=== PATIENT | male | born 1990 | race Caucasian/White ===

== ENCOUNTER 2023-05-24 17:35 | Inpatient (IN) ==
[2023-05-24] MEDS ORDERED: cefTRIAXone 2 gm/50 mL D5W 2 GM/50 ML BAG IV ONE (18:41)
[2023-05-24] MEDS ORDERED: Vancomycin 1,000 MG VIAL IVPB SCH (19:00)
[2023-05-24] MEDS ORDERED: Vancomycin 1,750 MG in NS 0.9% 500 ml BAG 500 ML IVPB ONE (19:00)
[2023-05-24] MEDS ORDERED: Valproic Acid IV 500 MG in NS 0.9% 100 ml BAG 100 ML IVPB ONE (19:44)
[2023-05-24] MEDS ORDERED: Propofol 10 MG/ML 20 ML BTL IV PUSH ONE (19:53)
[2023-05-24] MEDS: Rocuronium 50 mg VIAL 10 mg/ml 5 ml VIAL (50 mg) IV ONE ×2 (20:03→20:18)
[2023-05-24] MEDS ORDERED: Acyclovir IV 650 MG in NS 0.9% 100 ml BAG 100 ML IVPB ONE (20:17)
[2023-05-24] MEDS: Propofol 10 mg/ml 100 ML BTL 1,000 MG/100 ML BTL IV SCH (20:25)
[2023-05-24] MEDS ORDERED: Midazolam 10 mg/10 ml VIAL 1 mg/ml 10 ml VIAL (10 mg) IV SLOW PU ONE (21:10)
[2023-05-24] MEDS ORDERED: Midazolam PREMIXBAG 1 MG/ML NS 100 ML IV SCH (21:20)
[2023-05-24] MEDS ORDERED: OXCARBAZEPINE 300 MG PO SCH (21:45)
[2023-05-24] MEDS ORDERED: fentaNYL 100 mcg/2 ml 50 MCG/ML VIAL IV SLOW PU PRN (21:54)
[2023-05-24] MEDS ORDERED: Vancomycin per Pharmacy 1 EA NOTE FOLLOW UP SCH (22:00)
[2023-05-24] MEDS ORDERED: Lactated Ringers 1000 ml BAG 1,000 ML IV SCH (23:45)
[2023-05-25 00:40] LABS: Urine Appearance Cloudy; Urine Bilirubin Negative (Negative); Urine Blood 2+ (Negative); Urine Color Yellow; Urine Glucose 1+(50 mg/dL) (Negative); Urine Ketones 2+ (Negative); Urine Nitrite Negative (Negative); Urine Protein 1+(30 mg/dL) (Negative); Urine Specific Gravity 1.023 (1.002-1.030); Urine Urobilinogen Negative (Negative)
[2023-05-25 00:42] LABS: Urine Bacteria Absent (Absent); Urine Red Blood Cell 2+(6-10/hpf) (Absent); Urine Squamous Epithelial Cell Present (Absent); Urine White Blood Cell Trace(0-5/hpf) (Absent)
[2023-05-25] MEDS ORDERED: Lactated Ringers 1000 ml BAG 1,000 ML IV SCH (00:45)
[2023-05-25] MEDS: Propofol 10 mg/ml 100 ML BTL 1,000 MG/100 ML BTL IV SCH ×4 (00:48→22:09)
[2023-05-25 00:52] LABS: Body Fluid Source Cerebral Spinal
[2023-05-25 01:08] LABS: Albumin 4.4 g/dL (3.2-5.2); C Reactive Protein 18.45 mg/L (<8.01); Calcium 9.2 mg/dL (8.6-10.3); Creatinine, Serum 0.93 mg/dL (0.67-1.17); Globulin 2.2 g/dL (2-4); Total Bilirubin 0.6 mg/dL (0.2-1.0); Total Protein 6.6 g/dL (6.4-8.9); eGFR CKD-EPI 112.6 (>60)
[2023-05-25] MEDS: fentaNYL 100 mcg/2 ml 50 MCG/ML VIAL IV SLOW PU SCH ×9 (01:12→10:55)
[2023-05-25 01:36] LABS: ABS Lymphocytes 1.1 10^3/uL (1.0-4.8); ABS Monocytes 0.8 10^3/uL (0.0-1.1); ABS Neutrophils 5.3 10^3/uL (1.5-7.6); ABS Nucleated RBC 0.01 10^3/ul; Lymphocyte % 15.3 %; Mean Corpuscular Hemoglobin 36.2 pg (27-33); Mean Corpuscular Hgb Conc 35.3 g/dL (31-36); Mean Corpuscular Volume 102.4 fL (80-97); Mean Platelet Volume 8.8 fL (7.5-11.2); Nucleated Red Blood Cells % 0.1 %/100WBC (0.0-0.8); Platelet Count 93 10^3/uL (150-450); Red Blood Count 3.32 10^6/uL (4.06-5.63); Red Cell Distribution Width 12.9 % (12-17); White Blood Count 7.3 10^3/uL (3.6-10.2)
[2023-05-25 01:51] LABS: Body Fluid Appearance Clear; Body Fluid Color Colorless
[2023-05-25 01:55] LABS: CSF Tube # 4
[2023-05-25 01:56] LABS: CSF Body Fluid WBC 14 /mcL
[2023-05-25 01:58] LABS: Body Fluid Mono 6 %; Body Fluid Other Cells 4; Body Fluid Total Cells Counted 200
[2023-05-25 02:03] LABS: CSF Glucose 82 mg/dL (40-70)
[2023-05-25 05:47] LABS: ABS Lymphocytes 1.7 10^3/uL (1.0-4.8); ABS Monocytes 0.7 10^3/uL (0.0-1.1); ABS Neutrophils 3.3 10^3/uL (1.5-7.6); Hematocrit 29.9 % (38-53); Hemoglobin 10.6 g/dL (13.2-16.3); Lymphocyte % 29.8 %; Mean Corpuscular Hemoglobin 36.6 pg (27-33); Mean Corpuscular Hgb Conc 35.6 g/dL (31-36); Mean Platelet Volume 9.1 fL (7.5-11.2); Nucleated Red Blood Cells % 0.1 %/100WBC (0.0-0.8); Platelet Count 76 10^3/uL (150-450); Red Cell Distribution Width 12.8 % (12-17); White Blood Count 5.6 10^3/uL (3.6-10.2)
[2023-05-25] MEDS: Chlorhexidine MOUTHWASH 0.12% 15 ML UDC TOPICAL SCH ×5 (06:04→22:09)
[2023-05-25] MEDS: Pantoprazole VIAL 40 MG VIAL IV SCH (06:04)
[2023-05-25 06:05] LABS: Albumin 4.1 g/dL (3.2-5.2); Calcium 8.9 mg/dL (8.6-10.3); Creatinine, Serum 0.85 mg/dL (0.67-1.17); Globulin 2.1 g/dL (2-4); Magnesium 1.8 mg/dL (1.9-2.7); Potassium 3.8 mmol/L (3.5-5.0); Total Bilirubin 0.5 mg/dL (0.2-1.0); Total Protein 6.2 g/dL (6.4-8.9); eGFR CKD-EPI 119.1 (>60)
[2023-05-25] MEDS ORDERED: Valproic Acid IV 500 MG in NS 0.9% 100 ml BAG 100 ML IVPB SCH (09:00)
[2023-05-25] MEDS ORDERED: Acyclovir IV 650 MG in NS 0.9% 100 ml BAG 100 ML IVPB SCH (09:00)
[2023-05-25] MEDS ORDERED: Vancomycin 1000 MG in NS 0.9% 250 ML IVPB SCH (09:00)
[2023-05-25] MEDS ORDERED: fentaNYL 100 mcg/2 ml 50 MCG/ML VIAL IV SLOW PU PRN (09:12)
[2023-05-25] MEDS: cefTRIAXone 2 gm/50 mL D5W 2 GM/50 ML BAG IV SCH ×2 (09:37→20:27)
[2023-05-25] MEDS: Enoxaparin 40 MG/0.4 ML SYR SUBCUT SCH (15:30)
[2023-05-25] MEDS: Valproic Acid IV 500 MG in NS 0.9% 100 ML IVPB SCH ×2 (15:37→20:48)
[2023-05-25] MEDS ORDERED: Valproic Acid IV 100 MG/ML 5 ML VIAL (500 MG) IVPB SCH (21:00)
[2023-05-26] MEDS: Chlorhexidine MOUTHWASH 0.12% 15 ML UDC TOPICAL SCH ×3 (02:37→08:42)
[2023-05-26] MEDS: Valproic Acid IV 500 MG in NS 0.9% 100 ML IVPB SCH ×3 (03:09→15:45)
[2023-05-26 04:41] LABS: ABS Lymphocytes 1.4 10^3/uL (1.0-4.8); ABS Monocytes 0.4 10^3/uL (0.0-1.1); Eosinophil % 0.1 %; Hematocrit 28.9 % (38-53); Hemoglobin 10.4 g/dL (13.2-16.3); Lymphocyte % 28.4 %; Mean Corpuscular Hemoglobin 36.5 pg (27-33); Mean Corpuscular Hgb Conc 35.9 g/dL (31-36); Mean Corpuscular Volume 101.7 fL (80-97); Mean Platelet Volume 9.3 fL (7.5-11.2); Platelet Count 74 10^3/uL (150-450); Red Blood Count 2.84 10^6/uL (4.06-5.63); Red Cell Distribution Width 12.9 % (12-17); White Blood Count 4.8 10^3/uL (3.6-10.2)
[2023-05-26 04:50] LABS: Calcium 8.5 mg/dL (8.6-10.3); Creatinine, Serum 0.79 mg/dL (0.67-1.17); Potassium 3.5 mmol/L (3.5-5.0); eGFR CKD-EPI 121.8 (>60)
[2023-05-26] MEDS: Pantoprazole VIAL 40 MG VIAL IV SCH (05:09)
[2023-05-26] MEDS ORDERED: Vancomycin Trough Check NOTE FOLLOW UP ONE (08:30)
[2023-05-26] MEDS: cefTRIAXone 2 gm/50 mL D5W 2 GM/50 ML BAG IV SCH (10:13)
[2023-05-26 14:52] VITALS: BP 111/69
[2023-05-26] MEDS: Enoxaparin 40 MG/0.4 ML SYR SUBCUT SCH (15:26)
[2023-05-26] MEDS ORDERED: Vancomycin per Pharmacy 1 EA NOTE FOLLOW UP SCH (19:00)
[2023-05-26] MEDS ORDERED: cefTRIAXone 2 gm/50 mL D5W 2 GM/50 ML BAG IV SCH (21:00)
[2023-05-27 18:08] LABS: Free Valproic Acid 46 mcg/mL (5 - 25); Total Valproic Acid 86 mcg/mL (50 - 125)
[2023-05-28 15:17] LABS: Lactate Dehydrogenase, BF 22 U/L
[2023-05-28 18:15] LABS: Albumin, CSF 15.4 mg/dL (<=27.0); Albumin, S 4100 mg/dL; IgG Index, CSF 0.57 (<=0.85); IgG, CSF 1.3 mg/dL (<=8.1); IgG, S 592 mg/dL (767 - 1590); IgG/Albumin, CSF 0.08 (<=0.21); IgG/Albumin, S 0.14 (<=0.40); Synthesis Rate, CSF 0.57 mg/24 h (<=12)
[2023-05-28 20:18] LABS: HSV 1 PCR, CSF Negative (Negative); HSV 2 PCR, CSF Negative (Negative)
== END 2023-05-26 18:00 | disposition home or self-care (01) | DRG 49 ==
LOC: ED 17:35 → EDHOLD 20:10 → ICU 20:38
PROVIDERS: ADMIT Internal Medicine; ATTEND Internal Medicine

== ENCOUNTER 2023-05-26 22:49 | Inpatient (IN) ==
[2023-05-26] MEDS ORDERED: cefTRIAXone 1 gm/50 mL D5W 1 GM/50 ML BAG IV ONE (22:53)
[2023-05-26] MEDS ORDERED: Vancomycin 1,250 MG in NS 0.9% 250 ml 250 ML IVPB ONE (22:59)
[2023-05-27] MEDS ORDERED: Vancomycin per Pharmacy 1 EA NOTE FOLLOW UP SCH (07:00)
[2023-05-27 07:20] LABS: ABS Lymphocytes 1.5 10^3/uL (1.0-4.8); ABS Monocytes 0.3 10^3/uL (0.0-1.1); ABS Neutrophils 1.9 10^3/uL (1.5-7.6); ABS Nucleated RBC 0.01 10^3/ul; Eosinophil % 0.2 %; Hematocrit 29.3 % (38-53); Hemoglobin 10.4 g/dL (13.2-16.3); Lymphocyte % 40.3 %; Mean Corpuscular Hemoglobin 36.1 pg (27-33); Mean Corpuscular Hgb Conc 35.4 g/dL (31-36); Mean Corpuscular Volume 101.7 fL (80-97); Nucleated Red Blood Cells % 0.3 %/100WBC (0.0-0.8); Platelet Count 92 10^3/uL (150-450); Red Blood Count 2.88 10^6/uL (4.06-5.63); Red Cell Distribution Width 12.4 % (12-17); White Blood Count 3.8 10^3/uL (3.6-10.2)
[2023-05-27 07:36] LABS: Calcium 9.1 mg/dL (8.6-10.3); Creatinine, Serum 0.78 mg/dL (0.67-1.17); eGFR CKD-EPI 122.3 (>60)
[2023-05-27] MEDS ORDERED: Potassium Chlor 20 meq TAB.ER PO ONE (07:41)
[2023-05-27] MEDS ORDERED: Vancomycin 1000 MG in NS 0.9% 250 ML IVPB SCH (10:00)
[2023-05-27] MEDS ORDERED: cefTRIAXone 2 gm/50 mL D5W 2 GM/50 ML BAG IV SCH (12:00)
[2023-05-27] MEDS ORDERED: LORazepam 2 mg VIAL 1 ml IV PUSH ONE (20:19)
[2023-05-27] MEDS ORDERED: Lorazepam PYXIS KEY PRN (20:19)
[2023-05-27 20:27] LABS: Albumin 3.9 g/dL (3.2-5.2)
[2023-05-27] MEDS ORDERED: Gadoteridol (CONTRAST) 279.3 MG/ML 10 ML IV ONE (21:51)
[2023-05-28 07:55] LABS: ABS Lymphocytes 1.3 10^3/uL (1.0-4.8); ABS Monocytes 0.3 10^3/uL (0.0-1.1); ABS Neutrophils 1.3 10^3/uL (1.5-7.6); ABS Nucleated RBC 0.01 10^3/ul; Eosinophil % 0.6 %; Hematocrit 26.5 % (38-53); Hemoglobin 9.5 g/dL (13.2-16.3); Lymphocyte % 45.1 %; Mean Corpuscular Hemoglobin 36.2 pg (27-33); Mean Corpuscular Hgb Conc 35.8 g/dL (31-36); Mean Corpuscular Volume 101.2 fL (80-97); Mean Platelet Volume 8.4 fL (7.5-11.2); Nucleated Red Blood Cells % 0.4 %/100WBC (0.0-0.8); Platelet Count 87 10^3/uL (150-450); Red Blood Count 2.62 10^6/uL (4.06-5.63); Red Cell Distribution Width 12.1 % (12-17)
[2023-05-28 08:01] LABS: Creatinine, Serum 0.72 mg/dL (0.67-1.17); Magnesium 1.6 mg/dL (1.9-2.7); Potassium 2.8 mmol/L (3.5-5.0); eGFR CKD-EPI 125.3 (>60)
[2023-05-28] MEDS ORDERED: Vancomycin Trough Check NOTE FOLLOW UP ONE (09:30)
[2023-05-28 12:16] VITALS: BP 121/76
[2023-05-29 16:04] LABS: Anaplasma phagocytophilum Negative (Negative); B. miyamotoi PCR, B Negative (Negative); Babesia divergens/MO-1 Negative (Negative); Babesia ducani Negative (Negative); Ehrlichia chaffeensis Negative (Negative); Ehrlichia ewingii/canis Negative (Negative); Ehrlichia muris eauclairensis Negative (Negative)
== END 2023-05-28 14:45 | disposition home or self-care (01) | DRG 50 ==
LOC: ED 22:49 → SUATTDRO 23:27 → EDHOLD 23:27 → MEDTELE 05-27 00:39
PROVIDERS: ADMIT Internal Medicine; ATTEND Family Medicine

== ENCOUNTER 2023-06-27 16:08 | Inpatient (IN) ==
[2023-06-27] MEDS ORDERED: levETIRAcetam 1000MG IVPREMIX 1,000 MG/100 ML BAG IVPB ONE (16:35)
[2023-06-27] MEDS ORDERED: Midazolam PREMIXBAG 1 MG/ML NS 100 ML IV SCH (17:45)
[2023-06-27] MEDS ORDERED: fentaNYL INFUSION 50 mcg/mL VL 2,500 MCG/50 ML VIAL IV SCH ×2 (18:00→18:17)
[2023-06-27] MEDS ORDERED: fentaNYL 100 mcg/2 ml 50 MCG/ML VIAL IV SLOW PU PRN (18:46)
[2023-06-27] MEDS: Chlorhexidine MOUTHWASH 0.12% 15 ML UDC SWISH SPIT SCH ×2 (18:57→21:02)
[2023-06-27] MEDS: Pantoprazole VIAL 40 MG VIAL IV SCH (18:58)
[2023-06-27] MEDS: Enoxaparin 40 MG/0.4 ML SYR SUBCUT SCH (18:58)
[2023-06-27] MEDS: Midazolam PREMIXBAG 1 MG/ML NS 100 ML IV SCH ×2 (19:06→20:28)
[2023-06-27] MEDS: Midazolam 2 mg/2 ml VIAL 1 mg/ml 2 ml VIAL (2 mg) IV SLOW PU PRN (19:12)
[2023-06-27 19:46] LABS: Hematocrit 39.4 % (38-53); Hemoglobin 13.5 g/dL (13.2-16.3); Mean Corpuscular Hemoglobin 35.2 pg (27-33); Mean Corpuscular Hgb Conc 34.3 g/dL (31-36); Mean Corpuscular Volume 102.6 fL (80-97); Red Blood Count 3.84 10^6/uL (4.06-5.63); Red Cell Distribution Width 12.8 % (12-17); White Blood Count 6.7 10^3/uL (3.6-10.2)
[2023-06-27 20:00] LABS: Calcium 8.3 mg/dL (8.6-10.3); Creatinine, Serum 0.82 mg/dL (0.67-1.17); Magnesium 1.6 mg/dL (1.9-2.7); Phosphorus 2.5 mg/dL (2.5-5.0); Potassium 3.4 mmol/L (3.5-5.0); eGFR CKD-EPI 120.4 (>60)
[2023-06-27 20:14] LABS: ABS Lymphocytes 1.1 10^3/uL (1.0-4.8); ABS Monocytes 0.3 10^3/uL (0.0-1.1); ABS Neutrophils 5.2 10^3/uL (1.5-7.6); ABS Nucleated RBC 0.01 10^3/ul; Lymphocyte % 16.7 %; Mean Platelet Volume 8.8 fL (7.5-11.2); Nucleated Red Blood Cells % 0.2 %/100WBC (0.0-0.8); Platelet Count 80 10^3/uL (150-450)
[2023-06-27] MEDS ORDERED: Potassium Chloride LIQUID 20 MEQ/15 ML LIQUID PO ONE (20:23)
[2023-06-27] MEDS ORDERED: Magnesium Sulf 4 GM/100 ML IV 4,000 MG/100 ML BAG IVPB ONE (20:23)
[2023-06-27] MEDS: levETIRAcetam 1000MG IVPREMIX 1,000 MG/100 ML BAG IVPB SCH (20:24)
[2023-06-27] MEDS: Valproic Acid IV 1,000 MG in NS 0.9% 100 ml BAG 100 ML IVPB SCH (21:14)
[2023-06-28] MEDS ORDERED: Propofol 10 mg/ml 100 ML BTL 1,000 MG/100 ML BTL IV SCH (01:00)
[2023-06-28] MEDS: Propofol 10 mg/ml 100 ML BTL 1,000 MG/100 ML BTL IV SCH ×3 (01:24→22:23)
[2023-06-28] MEDS: Chlorhexidine MOUTHWASH 0.12% 15 ML UDC SWISH SPIT SCH ×6 (01:38→22:10)
[2023-06-28 04:48] LABS: Calcium 8.3 mg/dL (8.6-10.3); Creatinine, Serum 0.78 mg/dL (0.67-1.17); Magnesium 3.1 mg/dL (1.9-2.7); Potassium 3.2 mmol/L (3.5-5.0); eGFR CKD-EPI 122.3 (>60)
[2023-06-28 04:51] LABS: ABS Lymphocytes 1.5 10^3/uL (1.0-4.8); ABS Monocytes 0.4 10^3/uL (0.0-1.1); ABS Neutrophils 5.4 10^3/uL (1.5-7.6); Eosinophil % 0.1 %; Hematocrit 34.5 % (38-53); Hemoglobin 12.1 g/dL (13.2-16.3); Lymphocyte % 20.7 %; Mean Corpuscular Hemoglobin 35.8 pg (27-33); Mean Corpuscular Hgb Conc 35.2 g/dL (31-36); Mean Corpuscular Volume 101.7 fL (80-97); Mean Platelet Volume 9.3 fL (7.5-11.2); Nucleated Red Blood Cells % 0.1 %/100WBC (0.0-0.8); Platelet Count 66 10^3/uL (150-450); Red Blood Count 3.39 10^6/uL (4.06-5.63); Red Cell Distribution Width 12.7 % (12-17); White Blood Count 7.4 10^3/uL (3.6-10.2)
[2023-06-28] MEDS: levETIRAcetam 1000MG IVPREMIX 1,000 MG/100 ML BAG IVPB SCH ×2 (08:32→20:25)
[2023-06-28] MEDS: Pantoprazole VIAL 40 MG VIAL IV SCH (08:35)
[2023-06-28] MEDS: Valproic Acid IV 1,000 MG in NS 0.9% 100 ml BAG 100 ML IVPB SCH ×2 (08:58→20:44)
[2023-06-28] MEDS: cefTRIAXone 1 GM Q24H (ADVAN) IVPB SCH (10:24)
[2023-06-28] MEDS: Midazolam PREMIXBAG 1 MG/ML NS 100 ML IV SCH (10:27)
[2023-06-28] MEDS ORDERED: cefTRIAXone 1 gm/50 mL D5W 1 GM/50 ML BAG IV SCH (11:00)
[2023-06-28] MEDS: DOXYcycline 100 MG in NS 0.9% 250 ml 250 ML IVPB SCH (12:24)
[2023-06-28] MEDS ORDERED: Lactated Ringers 1000 ml BAG 1,000 ML IV ONE (14:10)
[2023-06-28] MEDS: KCL 20 MEQ/100 ML IVPREMIX 20 MEQ/100 ML BAG IV SCH ×3 (14:32→18:53)
[2023-06-28] MEDS: Enoxaparin 40 MG/0.4 ML SYR SUBCUT SCH (19:03)
[2023-06-28] MEDS: Midazolam 2 mg/2 ml VIAL 1 mg/ml 2 ml VIAL (2 mg) IV SLOW PU PRN ×2 (19:03→22:40)
[2023-06-28] MEDS ORDERED: Acetaminophen IV 1 GM/100ML 1,000 MG/100 ML BAG IV PRN (19:59)
[2023-06-28] MEDS ORDERED: Acetaminophen IV 1 GM/100ML 1,000 MG/100 ML BAG IV ONE (20:05)
[2023-06-29] MEDS ORDERED: Midazolam 2 mg/2 ml VIAL 1 mg/ml 2 ml VIAL (2 mg) IV SLOW PU ONE (00:31)
[2023-06-29] MEDS: DOXYcycline 100 MG in NS 0.9% 250 ml 250 ML IVPB SCH ×2 (00:33→12:26)
[2023-06-29] MEDS: Chlorhexidine MOUTHWASH 0.12% 15 ML UDC SWISH SPIT SCH ×7 (01:49→22:17)
[2023-06-29] MEDS: Acetaminophen IV 1 GM/100ML 1,000 MG/100 ML BAG IV PRN ×2 (04:16→22:38)
[2023-06-29 04:22] LABS: ABS Basophils 0.1 10^3/uL (0.0-0.1); ABS Lymphocytes 0.8 10^3/uL (1.0-4.8); ABS Monocytes 0.4 10^3/uL (0.0-1.1); ABS Neutrophils 4.9 10^3/uL (1.5-7.6); Eosinophil % 0.1 %; Hemoglobin 11.6 g/dL (13.2-16.3); Lymphocyte % 13.2 %; Mean Corpuscular Hemoglobin 35.8 pg (27-33); Mean Corpuscular Hgb Conc 35.2 g/dL (31-36); Mean Corpuscular Volume 101.7 fL (80-97); Mean Platelet Volume 9.6 fL (7.5-11.2); Platelet Count 57 10^3/uL (150-450); Red Blood Count 3.24 10^6/uL (4.06-5.63); Red Cell Distribution Width 12.8 % (12-17); White Blood Count 6.2 10^3/uL (3.6-10.2)
[2023-06-29 04:33] LABS: Creatinine, Serum 0.58 mg/dL (0.67-1.17); Magnesium 1.5 mg/dL (1.9-2.7); Potassium 3.4 mmol/L (3.5-5.0); eGFR CKD-EPI 133.7 (>60)
[2023-06-29] MEDS ORDERED: Magnesium Sulf 4 GM/100 ML IV 4,000 MG/100 ML BAG IVPB ONE (04:39)
[2023-06-29] MEDS ORDERED: Acetaminophen IV 1 GM/100ML 1,000 MG/100 ML BAG IV SCH (06:00)
[2023-06-29] MEDS: KCL 20 MEQ/100 ML IVPREMIX 20 MEQ/100 ML BAG IV SCH ×4 (06:11→12:56)
[2023-06-29] MEDS: Propofol 10 mg/ml 100 ML BTL 1,000 MG/100 ML BTL IV SCH (08:23)
[2023-06-29] MEDS: Pantoprazole VIAL 40 MG VIAL IV SCH (08:26)
[2023-06-29] MEDS: levETIRAcetam 1000MG IVPREMIX 1,000 MG/100 ML BAG IVPB SCH ×2 (08:29→20:55)
[2023-06-29] MEDS: Midazolam PREMIXBAG 1 MG/ML NS 100 ML IV SCH (10:11)
[2023-06-29] MEDS: Valproic Acid IV 1,000 MG in NS 0.9% 100 ml BAG 100 ML IVPB SCH ×2 (10:11→20:57)
[2023-06-29] MEDS: cefTRIAXone 1 GM Q24H (ADVAN) IVPB SCH (11:07)
[2023-06-29] MEDS: Midazolam 2 mg/2 ml VIAL 1 mg/ml 2 ml VIAL (2 mg) IV SLOW PU PRN (12:23)
[2023-06-29 13:15] LABS: Body Fluid Source Broncheoalveolar lav
[2023-06-29 15:30] LABS: Calcium 7.9 mg/dL (8.6-10.3); Creatinine, Serum 0.62 mg/dL (0.67-1.17); Magnesium 2.1 mg/dL (1.9-2.7); Phosphorus 2.2 mg/dL (2.5-5.0); Potassium 4.9 mmol/L (3.5-5.0); eGFR CKD-EPI 131.1 (>60)
[2023-06-29 15:37] LABS: Body Fluid Appearance Cloudy; Body Fluid Color Amber
[2023-06-29 15:42] LABS: Body Fluid Total Cells Counted 300
[2023-06-29 18:31] LABS: Folate 3.18 ng/mL (5.90-24.80)
[2023-06-29] MEDS: Enoxaparin 40 MG/0.4 ML SYR SUBCUT SCH (19:17)
[2023-06-30] MEDS: DOXYcycline 100 MG in NS 0.9% 250 ml 250 ML IVPB SCH ×3 (00:11→23:39)
[2023-06-30] MEDS: Chlorhexidine MOUTHWASH 0.12% 15 ML UDC SWISH SPIT SCH ×5 (02:22→17:53)
[2023-06-30] MEDS: Propofol 10 mg/ml 100 ML BTL 1,000 MG/100 ML BTL IV SCH (03:19)
[2023-06-30 04:33] LABS: ABS Monocytes 0.3 10^3/uL (0.0-1.1); ABS Neutrophils 3.8 10^3/uL (1.5-7.6); ABS Nucleated RBC 0.01 10^3/ul; Eosinophil % 0.7 %; Hemoglobin 10.5 g/dL (13.2-16.3); Lymphocyte % 19.7 %; Mean Corpuscular Hemoglobin 35.8 pg (27-33); Mean Corpuscular Hgb Conc 34.9 g/dL (31-36); Mean Corpuscular Volume 102.6 fL (80-97); Mean Platelet Volume 9.6 fL (7.5-11.2); Nucleated Red Blood Cells % 0.1 %/100WBC (0.0-0.8); Platelet Count 55 10^3/uL (150-450); Red Blood Count 2.92 10^6/uL (4.06-5.63); Red Cell Distribution Width 12.4 % (12-17); White Blood Count 5.1 10^3/uL (3.6-10.2)
[2023-06-30 04:47] LABS: Calcium 8.4 mg/dL (8.6-10.3); Creatinine, Serum 0.6 mg/dL (0.67-1.17); Magnesium 1.7 mg/dL (1.9-2.7); Phosphorus 3.2 mg/dL (2.5-5.0); Potassium 3.8 mmol/L (3.5-5.0); eGFR CKD-EPI 132.4 (>60)
[2023-06-30] MEDS ORDERED: Magnesium Sulfate 2 gm BAG 2 GM/50 ML BAG IVPB ONE (06:25)
[2023-06-30] MEDS: levETIRAcetam 1000MG IVPREMIX 1,000 MG/100 ML BAG IVPB SCH ×2 (08:34→21:35)
[2023-06-30] MEDS: Valproic Acid IV 1,000 MG in NS 0.9% 100 ml BAG 100 ML IVPB SCH (08:36)
[2023-06-30] MEDS: Pantoprazole VIAL 40 MG VIAL IV SCH (08:39)
[2023-06-30] MEDS: Midazolam PREMIXBAG 1 MG/ML NS 100 ML IV SCH (09:16)
[2023-06-30] MEDS ORDERED: Acetylcysteine INH SOL (RT) 200 MG/ML 4 ML VIAL INH ONE (10:05)
[2023-06-30] MEDS ORDERED: Midazolam 2 mg/2 ml VIAL 1 mg/ml 2 ml VIAL (2 mg) ONE (10:24)
[2023-06-30] MEDS ORDERED: Folic Acid IV 1 MG in NS 0.9% 50 ML 50 ML IV ONE (10:30)
[2023-06-30] MEDS ORDERED: Midazolam 2 mg/2 ml VIAL 1 mg/ml 2 ml VIAL (2 mg) IV SLOW PU ONE (10:40)
[2023-06-30] MEDS: cefTRIAXone 1 GM Q24H (ADVAN) IVPB SCH (11:21)
[2023-06-30 11:40] LABS: Albumin 3.1 g/dL (3.2-5.2); Albumin/Globulin Ratio 1.4 (1-3); Direct Bilirubin 0.1 mg/dL (0.03-0.18); Globulin 2.2 g/dL (2-4); Indirect Bilirubin 0.4 mg/dL (0.3-1.0); Total Bilirubin 0.5 mg/dL (0.2-1.0); Total Protein 5.3 g/dL (6.4-8.9)
[2023-06-30] MEDS ORDERED: Magnesium Hydroxide LIQ 30 ML UDC NG TUBE PRN (12:16)
[2023-06-30] MEDS ORDERED: Dexmedetomidine 1,000 MCG in NS 0.9% 250 ml 240 ML IV SCH (13:00)
[2023-06-30 13:12] LABS: Resp Rate 16
[2023-06-30 13:14] LABS: PCO2 Arterial 40 mmHg (35-45); PO2 Arterial 123 mmHg (80-100)
[2023-06-30] MEDS: Senna TAB 8.6 mg TAB PO SCH (13:36)
[2023-06-30] MEDS: Enoxaparin 40 MG/0.4 ML SYR SUBCUT SCH (21:35)
[2023-06-30] MEDS: Acetaminophen IV 1 GM/100ML 1,000 MG/100 ML BAG IV PRN (23:37)
[2023-07-01 04:38] LABS: ABS Eosinophils 0.1 10^3/uL (0.0-0.5); ABS Lymphocytes 1.4 10^3/uL (1.0-4.8); ABS Monocytes 0.4 10^3/uL (0.0-1.1); ABS Neutrophils 3.6 10^3/uL (1.5-7.6); ABS Nucleated RBC 0.01 10^3/ul; Eosinophil % 1.1 %; Hematocrit 28.1 % (38-53); Hemoglobin 9.8 g/dL (13.2-16.3); Lymphocyte % 25.1 %; Mean Corpuscular Hemoglobin 35.3 pg (27-33); Mean Corpuscular Hgb Conc 34.8 g/dL (31-36); Mean Corpuscular Volume 101.5 fL (80-97); Nucleated Red Blood Cells % 0.1 %/100WBC (0.0-0.8); Platelet Count 60 10^3/uL (150-450); Red Blood Count 2.77 10^6/uL (4.06-5.63); Red Cell Distribution Width 12.5 % (12-17); White Blood Count 5.5 10^3/uL (3.6-10.2)
[2023-07-01 04:44] LABS: Albumin 3.1 g/dL (3.2-5.2); Albumin/Globulin Ratio 1.4 (1-3); Calcium 8.6 mg/dL (8.6-10.3); Creatinine, Serum 0.58 mg/dL (0.67-1.17); Globulin 2.2 g/dL (2-4); Magnesium 1.5 mg/dL (1.9-2.7); Potassium 3.7 mmol/L (3.5-5.0); Total Bilirubin 0.6 mg/dL (0.2-1.0); Total Protein 5.3 g/dL (6.4-8.9); eGFR CKD-EPI 133.7 (>60)
[2023-07-01] MEDS ORDERED: Magnesium Sulfate 2 gm BAG 2 GM/50 ML BAG IVPB ONE (05:48)
[2023-07-01] MEDS: Senna TAB 8.6 mg TAB PO SCH (09:28)
[2023-07-01] MEDS: Pantoprazole VIAL 40 MG VIAL IV SCH (09:28)
[2023-07-01] MEDS: levETIRAcetam 1000MG IVPREMIX 1,000 MG/100 ML BAG IVPB SCH (10:25)
[2023-07-01] MEDS ORDERED: Magnesium Hydroxide LIQ 30 ML UDC PO PRN (10:35)
[2023-07-01] MEDS ORDERED: cefTRIAXone 1 gm/50 mL D5W 1 GM/50 ML BAG IV SCH (11:00)
[2023-07-01 14:42] VITALS: BP 141/91
== END 2023-07-01 14:50 | disposition home or self-care (01) | DRG 53 ==
LOC: ICU 17:18 → SUATTDRO 17:18 → ICU 17:32
PROVIDERS: ADMIT Student in an Organized Health Care Education/Training Program; ATTEND Internal Medicine Pulmonary Disease

== ENCOUNTER 2023-10-23 17:25 | Observation (INO) ==
[2023-10-23] MEDS: Droperidol 5 MG/2 ML 2 ML VIAL IV ONE (17:38)
[2023-10-23 18:29] LABS: ABS Lymphocytes 1.3 10^3/uL (1.0-4.8); ABS Monocytes 0.4 10^3/uL (0.0-1.1); ABS Neutrophils 7.2 10^3/uL (1.5-7.6); ABS Nucleated RBC 0.01 10^3/ul; Eosinophil % 0.1 %; Hematocrit 38.1 % (38-53); Hemoglobin 13.1 g/dL (13.2-16.3); Lymphocyte % 14.9 %; Mean Corpuscular Hemoglobin 34.2 pg (27-33); Mean Corpuscular Hgb Conc 34.5 g/dL (31-36); Mean Corpuscular Volume 98.9 fL (80-97); Mean Platelet Volume 9.9 fL (7.5-11.2); Nucleated Red Blood Cells % 0.1 %/100WBC (0.0-0.8); Platelet Count 125 10^3/uL (150-450); Red Blood Count 3.85 10^6/uL (4.06-5.63); Red Cell Distribution Width 13.2 % (12-17); White Blood Count 9.1 10^3/uL (3.6-10.2)
[2023-10-23 18:59] LABS: ALT 10 U/L (7-52); AST 36 U/L (13-39); Albumin 4.7 g/dL (3.2-5.2); Alkaline Phosphatase 67 U/L (35-149); Anion Gap 5 mmol/L (2-16); Blood Urea Nitrogen 9 mg/dL (6-24); CO2 Carbon Dioxide 24 mmol/L (22-32); Calcium 8.5 mg/dL (8.6-10.3); Chloride 104 mmol/L (101-111); Creatinine, Serum 1.01 mg/dL (0.67-1.17); Globulin 2.3 g/dL (2-4); Glucose 88 mg/dL (70-100); Sodium 133 mmol/L (135-145); Total Bilirubin 0.5 mg/dL (0.2-1.0)
[2023-10-23] MEDS ORDERED: Lorazepam PYXIS KEY PRN (21:21)
[2023-10-23 22:23] LABS: C Reactive Protein 1.05 mg/L (<8.01)
[2023-10-23] MEDS: LORazepam 2 mg VIAL 1 ml IV PUSH ONE (23:01)
[2023-10-23 23:41] LABS: Alcohol, S < 13 mg/dL (<13)
[2023-10-24 08:03] LABS: Urine Appearance Clear; Urine Bilirubin Negative (Negative); Urine Blood Negative (Negative); Urine Glucose Negative (Negative); Urine Ketones 1+ (Negative); Urine Nitrite Negative (Negative); Urine Protein Trace (Negative); Urine Specific Gravity 1.031 (1.002-1.030); Urine Urobilinogen Negative (Negative)
[2023-10-24 08:08] LABS: Urine Benzodiazepine Screen Presumptive Positive (None Detect); Urine Cannabinoids Screen Presumptive Positive (None Detect); Urine Opiates Screen None Detected (None Detect)
[2023-10-24 08:09] LABS: Hematocrit 37.5 % (38-53); Mean Corpuscular Hemoglobin 34.1 pg (27-33); Mean Corpuscular Hgb Conc 34.7 g/dL (31-36); Mean Corpuscular Volume 98.5 fL (80-97); Mean Platelet Volume 9.5 fL (7.5-11.2); Platelet Count 108 10^3/uL (150-450); Red Blood Count 3.81 10^6/uL (4.06-5.63); Red Cell Distribution Width 12.9 % (12-17); White Blood Count 4.9 10^3/uL (3.6-10.2)
[2023-10-24 08:47] LABS: Urine Color Yellow
[2023-10-24 08:52] LABS: CRP High Sensitivity 6.09 mg/L (<2.00); Calcium 9.2 mg/dL (8.6-10.3); Creatinine, Serum 0.93 mg/dL (0.67-1.17); Potassium 3.8 mmol/L (3.5-5.0); eGFR CKD-EPI 112.6 (>60)
[2023-10-24 08:54] VITALS: BP 102/57
[2023-10-27 11:05] LABS: Lacosamide <0.5 mcg/mL (1.0 - 10.0)
[2023-10-27 15:48] LABS: Anaplasma phagocytophilum Negative (Negative); B. miyamotoi PCR, B Negative (Negative); Babesia divergens/MO-1 Negative (Negative); Babesia ducani Negative (Negative); Ehrlichia chaffeensis Negative (Negative); Ehrlichia ewingii/canis Negative (Negative); Ehrlichia muris eauclairensis Negative (Negative)
== END 2023-10-24 09:50 | disposition left against medical advice (07) ==
LOC: EDHOLD 17:25 → ED 17:25 → EDHOLD 18:30 → SUATTDRO 18:48 → EDHOLD 10-24 09:40 → ED 10-24 09:40 → EDHOLD 10-24 09:48
PROVIDERS: ADMIT Student in an Organized Health Care Education/Training Program; ATTEND Hospitalist